=== PATIENT | male | born 2000 ===

== ENCOUNTER 2020-09-16 19:12 | Emergency (ER) | payer SELFPAY ==
[~2020-09-16] VITALS: Ht 167.7 cm; Wt 90.7 kg
[2020-09-16 19:20] VITALS: BP 134/78
--- NOTE | 2020-09-16 19:35 | ED Upper Extremity ---
General Chief Complaint: Upper Extremity Stated Complaint: LEFT PINKIE FINGER INJURY Nursing Triage Note: PT AMBULATE TO TRIAGE WITH C/O LEFT PINKY INJURY. PT STATES HE WAS MOVING A HEAVY PIECE OF METAL AND IT FELL ONTO FINGER AT A GLANCING BLOW. 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 Lac to pad of left fingertip Onset: just prior to arrival Severity: moderate Pain/Injury Location: left 5th finger Method of Injury: direct blow Modifying Factors: Worse With Movement Allergies and Home Medications Allergies Coded Allergies: No Known Drug Allergies (Unverified , 09/16/20) Patient Home Medication List Home Medication List Reviewed: Yes Review of Systems Constitutional: see HPI EENTM: see HPI Respiratory: no symptoms reported Cardiovascular: no symptoms reported Genitourinary: no symptoms reported Musculoskeletal: see HPI Skin: see HPI Psychiatric/Neurological: No Symptoms Reported Past Chfvkpu-Wvavfa-Tmckjv Hx Patient Social History Alcohol Use: Occasionally Uses Smoking Status: Never a Smoker 2nd Hand Smoke Exposure: No Recent Infectious Disease Expo: No Recent Hopitalizations: No Seasonal Allergies Seasonal Allergies: No Past Medical History Surgeries: No Respiratory: No Cardiac: No Neurological: No Genitourinary: No Gastrointestinal: No Musculoskeletal: No Endocrine: No HEENT: No Cancer: No Psychosocial: No Integumentary: No Blood Disorders: No Physical Exam Vital Signs Vital Signs - First Documented 09/16/20 19:20 Temp 37.3 Pulse 66 Resp 17 B/P (MAP) 134/78 (96) O2 Delivery Room Air Capillary Refill : Less Than 3 Seconds Height, Weight, BMI Height: '" Weight: lbs. oz. kg; 32.00 BMI Method: General Appearance: WD/WN, no apparent distress Neck: non-tender, full range of motion Respiratory: no respiratory distress, no accessory muscle use Gastrointestinal: normal bowel sounds, non tender Elbow/Forearm: normal inspection, non-tender Hand: Left, laceration (to pad of left fingertip, ecchymosis, swelling, minor oozing of blood. ) Neurologic/Tendon: normal sensation, normal motor functions, normal tendon functions Neurologic/Psychiatric: alert, normal mood/affect, oriented x 3 Skin: normal color, warm/dry Progress/Results/Core Measures Results/Orders My Orders Orders - EDITH HERNANDEZ APRN Hand, Left, 3 Views (09/16/20 19:26) Dipht,Pertuss(Acell),Tet Adult (Boostrix (09/16/20 19:45) Rx-Hydrocodone/Apap 5-325 Mg (Rx-Vicodin (09/16/20 19:45) Cephalexin Capsule (Keflex Capsule) (09/16/20 19:45) Medications Given in ED Current Medications Medications Dose Ordered Sig/Robert Route Start Time Stop Time Status Last Admin Dose Admin Acetaminophen/ Hydrocodone Bitart 1 ea Q4H PRN PO 09/16/20 19:45 09/16/20 19:47 1 EA Diphtheria/ Tetanus/Acell Pertussis 0.5 ml ONCE ONCE IM 09/16/20 19:45 09/16/20 19:46 DC 09/16/20 19:47 0.5 ML Vital Signs/I&O 09/16/20 19:20 Temp 37.3 Pulse 66 Resp 17 B/P (MAP) 134/78 (96) O2 Delivery Room Air Blood Pressure Mean: 96 Departure Communication (Admissions) X-ray shows no fracture or dislocation Data to block using 3 mL of 1% lidocaine without epinephrine. This achieved very nice anesthesia distally. We then scrubbed the area with chlorhexidine/saline solution. There was a superficial skin avulsion of the pad of the finger. There was a half a centimeter laceration gaping to the tip of the finger with some fatty tissue exposed/bulging out of this. This was closed with 1 simple interrupted suture size 5-0 Prolene then covered with antibiotic ointment then tube gauze. Impression Primary Impression: Crushed finger, distal Disposition: HOME, SELF-CARE Condition: Stable Departure-Patient Inst. Decision time for Depature: 20:05 Referrals: NO,LOCAL PHYSICIAN (PCP/Family) Primary Care Physician Patient Instructions: Common Finger Injuries Add. Discharge Instructions: 1. You can remove this dressing tomorrow evening by simply pulling on it and replace it with a Band-Aid. Take the antibiotics and pain medication as directed. Keep the finger elevated that will help with swelling and subsequently help ease the throbbing sensation. Return to ER in 7 to 10 days to have the stitches removed All discharge instructions reviewed with patient and/or family. Voiced understanding. Scripts Hydrocodone/Acetaminophen (Hydrocodone-Acetamin 5-325 mg) 1 Each Tablet 1 TAB PO Q4H PRN for PAIN-MODERATE (5-7), #10 TAB Prov: EDITH HERNANDEZ APRN 09/16/20 Cephalexin (Cephalexin) 500 Mg Tablet 500 MG PO TID, #15 TAB Prov: EDITH HERNANDEZ APRN 09/16/20 Work/School Note: Work Release Form Date Seen in the Emergency Department: Sep 16, 2020 Return to Work: Sep 18, 2020 Other Restrictions Listed Below: No use of right hand x10 days EDITH HERNANDEZ APRN Sep 16, 2020 19:34
[2020-09-16] MEDS ORDERED: TETANUS,DIPTH,PERTUSS P/F (BOOSTRIX) 0.5 ML VIAL IM ONE (19:45)
[2020-09-16] MEDS ORDERED: CEPHALEXIN 250 MG (KEFLEX) CAP PO SCH (19:45)
--- NOTE | 2020-09-16 19:46 | Diagnostic Imaging Report ---
EXAMINATION: Left hand 3 views. HISTORY: pain left pinky COMPARISON: None available. FINDINGS: Alignment is normal. No fracture is seen. Joint spaces are normal. No radiopaque foreign body is seen. IMPRESSION: No fracture. Dictated by: Dictated on workstation # [id number]
[2020-09-16] MEDS ORDERED: CEPH500T PO (20:07)
[2020-09-16] MEDS ORDERED: ACHD5005 PO (20:07)
== END 2020-09-16 20:25 | disposition home or self-care (01) ==
LOC: ER 19:16
DX: S67.197A Crushing injury of left little finger, initial encounter (principal); Z23 Encounter for immunization; W26.8XXA Contact with other sharp object(s), not elsewhere classified, initial encounter
CPT/HCPCS: 12001; 64450; 73130; 90715